=== PATIENT | female | born 1960 | race Caucasian/White ===

== ENCOUNTER 2022-02-08 12:17 | Outpatient (CLI) | payer BC, SELFPAY ==
--- NOTE | ~2022-02-08 | MR_ITS ---
EXAMINATION: MR lumbar spine wo con DATE: 02/08/2022 12:50 INDICATION: Lumbar spinal stenosis. Burning pain in the buttocks with extended sitting. TECHNIQUE: Magnetic resonance imaging (MRI) of the lumbar spine was performed without intravenous con trast. Sequences included sagittal T2-weighted FSE, sagittal T2-weighted FS FSE, sagittal T1-weighted FSE, and axial T2-weighted FSE. COMPARISON: None FINDINGS: 3 mm retrolisthesis L4 on L5 and 4 mm retrolisthesis L5 on S1. There is a few millimeters right later al listhesis of L3 with respect to both L2 and L4. Vertebral body heights are normal. Moderate to sev ere disc height loss with fibrofatty and fibrovascular degenerative endplate changes at L3-L4, L5-S1 and at the right side of L4-L5. Marrow signal is otherwise normal. Moderate disc height loss at L2-L3 . Mild disc height loss at T11-T12 through L1-L2. The conus medullaris terminates at L1-L2. There is normal signal in the caudal spinal cord. Paravertebral soft tissues are unremarkable. The following d isc levels are specifically discussed: T12-L1: Disc is minimally bulging. There is mild bilateral facet joint osteoarthritis. There is no ne ural foraminal stenosis. There is no central canal stenosis. L1-L2: Disc is mildly bulging with superimposed annular fissure and very small central disc extrusion with disc material extending a few millimeters cephalad to the level of the inferior endplate of L1. There is no facet joint osteoarthritis. There is no neural foraminal stenosis. There is mild central canal stenosis. L2-L3: Disc is bulging. There is mild right facet joint osteoarthritis. There is mild bilateral neura l foraminal stenosis. There is mild central canal stenosis. L3-L4: Disc is bulging with superimposed annular fissure and small left paracentral disc extrusion wi th disc bulge extending couple millimeters cephalad and caudal to the level of the endplates. There i s mild bilateral facet joint osteoarthritis. There is mild right and mild to moderate left neural for aminal stenosis. There is mild central canal stenosis. There is also mild narrowing of the left and r ight lateral recesses. L4-L5: Disc is bulging with superimposed annular fissure and broad-based disc extrusion extending fro m foraminal zone to foraminal zone with disc material extending up to 4 mm caudal to the level of the superior endplate of L5. There is mild bilateral facet joint osteoarthritis. There is moderate right and mild to moderate left neural foraminal stenosis. There is mild central canal stenosis. There is also mild narrowing of the left and right lateral recesses. L5-S1: Annular fissure and broad-based disc extrusion extending from foraminal zone to foraminal zone with disc material extending up to 5 mm caudal to the level of the superior endplate of S1. There is mild bilateral facet joint osteoarthritis. There is moderate bilateral neural foraminal stenosis. Th ere is mild central canal stenosis. IMPRESSION: 1. Moderate to severe lumbar spondylosis. Reviewed, dictated and finalized at location B.
== END 2022-02-08 12:18 ==
PROVIDERS: PCP Internal Medicine; Visit Provider Internal Medicine
DX: M47.817 Spondylosis without myelopathy or radiculopathy, lumbosacral region (principal); M48.07 Spinal stenosis, lumbosacral region
CPT/HCPCS: 72148

== ENCOUNTER 2025-03-12 11:36 | Emergency (ER) | payer MEDICARE, BC, SELFPAY ==
--- NOTE | ~2025-03-12 | CT_ITS ---
EXAMINATION: CTA chest PE protocol DATE: 03/12/2025 16:14 CDT INDICATION: Right flank pain. Pain with inspiration. TECHNIQUE: Computed tomographic angiography (CTA) of the chest was performed with 100 mL Omnipaque-35 0 intravenous contrast. The dose-length product was 151.12 mGy-cm. Maximum intensity projection 3D-re constructions of the aorta and other arteries were constructed by the technologist on a separate work station. COMPARISON: None. FINDINGS/OBSERVATIONS: PULMONARY ARTERIES: No filling defect is identified within the main or proximal pulmonary artery. The main pulmonary artery is not enlarged. THORACIC AORTA: No aneurysmal dilatation or dissection is present. The great vessels are intact LUNGS: Panlobular emphysematous disease is identified bilaterally. Trace bibasilar atelectasis. Centrilobular bronchiectasis is also noted. MEDIASTINUM: No morphologically suspicious or pathologically enlarged lymph nodes are identified with in the mediastinum or bilateral axilla. BONES OF THE CHEST: Large Schmorl's node within the inferior endplate at the level of T8, with narrowing of the intervert ebral disc space of T8/T9. No lytic or blastic lesions are identified. No acute fractures are noted. HEART: The heart is of normal size, without pericardial effusion. IMPRESSION: No pulmonary embolus. No thoracic aortic dissection. Degenerative disease within the thoracic spine, specifically at the level of inferior endplate of T8. Panlobular emphysema. Trace bibasilar atelectasis. Reviewed, dictated and finalized at location A. IMPRESSION: No pulmonary embolus. No thoracic aortic dissection. Degenerative disease within the thoracic spine, specifically at the level of in ferior endplate of T8. Panlobular emphysema. Trace bibasilar atelectasis.
--- NOTE | ~2025-03-12 | XR_ITS ---
XR chest 1V portable Ordering provider: Timoteo Wagner MD History: 64 years Female with . back pain . Comparison: None. FINDINGS: MEDIASTINUM: The cardiac silhouette is not enlarged. LUNGS: No infiltrates, effusions or pneumothorax. OTHER: No free air under the diaphragm. IMPRESSION: No acute cardiopulmonary pathology. Reviewed, dictated and finalized at location A.
[2025-03-12 11:40] VITALS: BP 111/80; PULSE 95; RESP 18; TEMP 36.5; O2SAT 99
--- OUTSIDE RECORDS SUMMARY | 2025-03-12 11:40 | XMS_ITS | Encounter Summary ---
Author Organization [facility] Health Address [address] [place] [address] Care Team Providers Care Burrito Maker Name Role Phone Antony England MD Primary Care Provider Delmar morris Encounter Details Date Type Department Care Team (Late st Contact Info) Description 11/12/2024 Lab Requisition [facility] - DermPath Lab [address] [place] [id number] Timo Cohen MD [address] [place], [place] [id number] Social History Tobacco Use Types Packs/Day Years Used Date Smoking Tobacco: Every Day Cigarettes Smokeless Tobacco: Never Comments:6 cigs a day Alcohol Use Standard Drinks/Week Comments Yes 0 (1 standard drink = 0.6 oz pur e alcohol) occas Comments Unknown Sex and Gender Information Value Date Recorded Sex Assigned at Not on file Legal Sex Female 2:18 PM PROJECT ANALYST Gender Identity Not on file Sexual Orientation Not on file documented as of this encounter Plan of Treatment Not on file documented as of this encounter Procedures Procedure Name Priority Date/Time Associated Diagnosis Comments DERMATOPATHOLOGY Routine 11/12/2024 3:33 AM PROJECT ANALYST documented in this encounter Results * DERMATOPATHOLOGY (11/12/2024 3:33 AM PROJECT ANALYST) Case Report Dermatopathology Report Case: [id number] Authorizing Provider: Timo Cohen MD Collected: 11/12/2024 03:33 AM Ordering Location: [facility] - Received: 11/12/2024 03:15 PM DermPath Lab Pathologist: Keyona Wilson MD Specimen: Skin, left sup forehead 12:11 PM [facility] DERMATOPATHOLOGY LABORATORY Final Diagnosis Specimen A. SKIN, left sup forehead: EPIDERMOID CYST (L72.0) 12:11 PM [facility] DERMATOPATHOLOGY LABORATORY at 1211 PROJECT ANALYST Clinical History Cyst 12:11 PM [facility] DERMATOPATHOLOGY LABORATORY Gross Description Specimen A: Received is one formalin filled container labeled with the patient's name and designated left sup forehead. The specimen consists of a 4x4x12 mm piece of skin. The specimen is serially sectioned and a communications representative section is submitted in cassette 1. Jar 0. 12:11 PM [facility] DERMATOPATHOLOGY LABORATORY Microscopic Description Specimen A. SKIN, left sup forehead: Within the dermis, there is a space lined by epithelium that resembles normal epidermis and the infundibular portion of the hair follicle. 12:11 PM [facility] DERMATOPATHOLOGY LABORATORY Disclaimer An external and internal positive and negative controls are appropriate for the histochemical, immunohistochemical and immunofluorescence stain(s) in this case (if any), except where stated explicitly. The performance characteristics of the stain(s) cited in this report were developed and its performance characteristic determined by the Dermatopathology Laboratory at [facility], directed by Dr. Flavia Wilson. These tests need not be, and therefore are not, approved by the [place] Food and Drug Administration. The tests are used for clinical purposes. Billing Codes Specimen Charges Stain Charges 20001 1 12:11 PM [facility] DERMATOPATHOLOGY LABORATORY Embedded Images 12:11 PM [facility] DERMATOPATHOLOGY LABORATORY Pathology/Cytolo gy TISSUE SPECIMEN FROM SKIN / Unknown 11/12/2024 3:33 AM PROJECT ANALYST 11/12/2024 3:15 PM [facility] us Timo Cohen MD LAB - PATHOLOGY/CYTOLOGY ORDERAB LES Final Result DERMATOPATHOLOGY LABORATORY [facility] - Department of Dermatology [address] [phone] documented in this encounter Visit Diagnoses Not on filedocumented in this encounter Care Teams Burrito Maker Relationship Specialty Start Date End Date Antony England MD PCP - General 08/17/12 documented as of this encounter
--- OUTSIDE RECORDS SUMMARY | 2025-03-12 11:40 | XMS_ITS | Clinical Summary ---
Author Organization [facility] Address [address] Attn: Epic Prelude ADT DEVENDRA SHAY [id number] Care Team Providers Care Machine Stacker Name Role Phone Unavailable Primary Care Provider Unavailabl e Allergies Active Allergy Reactions Criticality Noted Date Comments Codeine Nausea and Vomiting Low 03/30/2017 Medications cyclobenzaprine (FLEXERIL) 10 mg tabletIndication s:Midline low back pain without sciatica, unspecified chronicity Take 1 Tablet (10 mg) by mouth 3 times daily as needed for Spasm. 20 Tablet 0 03/30/2017 Active HYDROcodone-acet aminophen (NORCO) 5-325 mg tabletIndication s:Midline low back pain without sciatica, unspecified chronicity Take 1 Tablet by mouth every 6 hours as needed for Pain, Moderate. 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 Gender Identity Not on file Sexual Orientation Not on file Last Filed Vital Signs Vital Sign Reading Time Taken Comments Blood Pressure 110/70 03/30/2017 9:34 AM CDT Pulse 94 03/30/2017 9:34 AM CDT Temperature 36.6 C (97.8 F) 03/30/2017 9:34 AM CDT Respiratory Rate 20 03/30/2017 9:34 AM CDT Oxygen Saturation - - Inhaled Oxygen Concentration - - Weight 58.2 kg (128 lb 3.2 oz) 03/30/2017 9:34 A M CDT Height 167.6 cm (5' 6) 03/30/2017 9:34 AM CDT Body Mass Index 20.69 03/30/2017 9:34 AM CDT Plan of Treatment Health Maintenance Due Date Last Done Comments DTAP/TDAP/TD VACCINES (1 - Tdap) 1978 BREAST CANCER SCREENING 1999 COLORECTAL SCREENING 2004 Colorectal Cancer Screening 2004 FIT-DNA Q 3 years 2004 FIT/FOBT Q 1 year 2004 Flex Sig/CT Colonography Q 5 years 2004 PNEUMOCOCCAL VACCINE 50+ YEARS (1 of 1 - PCV) 06/27/20 09 ZOSTER VACCINE (1 of 2) 2009 INFLUENZA VACCINE (#1) 2024 OSTEOPOROSIS SCREENING 2024 RSV VACCINE (60+ or ) (1 - 1-dose 75+ series) 2034
--- OUTSIDE RECORDS SUMMARY | 2025-03-12 11:40 | XMS_ITS | Clinical Summary ---
Author Organization [facility] Address [address] [place] [address] Care Team Providers Care Hose Mender Name Role Phone Antony England MD Primary Care Provider Unaabhilash morris Source Comments [facility],non-owned Affiliates and Associated Physician Practices is amultiple site organization consisting of ambulatory clinics and hospital sitesin [place], [place], [place] and [place]. This disclosure is being madepursuant to the Care Everywhere program and may not contain all information available regarding this patient. Last updated 18.[facility] [email or web address]. Allergies No known active allergies Medications * Be aware that medications may not be up to date on this document. Alwaysverify current medications with the patient. 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 Gender Identity Not on file Sexual Orientation Not on file Last Filed Vital Signs Vital Sign Reading Time Taken Comments Blood Pressure 89/68 08/17/2012 10:09 AM CDT Pulse 79 08/17/2012 10:09 AM CDT Temperature - - Respiratory Rate 17 08/17/2012 9:27 AM CDT Oxygen Saturation 100% 08/17/2012 10:00 AM CDT Inhaled Oxygen Concentration - - Weight 54.9 kg (121 lb) 08/17/2012 9:02 AM CDT Height 170.2 cm (5' 7) 08/17/2012 9:02 AM CDT Body Mass Index 18.95 08/17/2012 9:02 AM CDT Plan of Treatment Health Maintenance Due Date Last Done Comments BONE DENSITY TESTING 1959 COLOGUARD (AGES 45-75) - COL ON CA SCREENING 1959 COLON MONITORING 1959 COLONOSCOPY - COLON CA SCREENING 1959 CT COLONOGRAPHY - COLON CA SCREENING 1959 Colorectal Cancer Screening 1959 FIT - COLON CA SCREENING 1959 FLEX SIG - COLON CA SCREENING 1959 LIPID TESTING 1959 MAMMOGRAM 1959 MEDICARE AWV 12 MONTHS 1959 PAP SMEAR 1959 HIV SCREENING 1974 HEPATITIS C SCREENING 06/22/1977 DTAP/TDAP/TD VACCINES (1 - Tdap) 1978 PNEUMOCOCCAL VACCINE 50+ (1 of 2 - PCV) 1978 ZOSTER VACCINE (1 of 2) 2009 COVID-19 VACCINE (1 - 2023-2 5 season) 2024 DEPRESSION SCREENING 10/16/2024 INFLUENZA VACCINE (Season Ended) 2025 Respiratory Syncytial Virus (RSV) Vaccine Pt: or over 60 yrs (1 - 1-dose 75+ series) 2034 HEPATITIS B VACCINE Aged Out No longe r eligible based on patient's age to complete this topic HIB VACCINE Aged Out No longer eligi ble based on patient's age to complete this topic HPV VACCINE Aged Out No longer eligi ble based on patient's age to complete this topic MENINGOCOCCAL (Group B) VACC INE SHARED DECISION-MAKING Aged Out No longer eligibl e based on patient's age to complete this topic MENINGOCOCCAL GROUPS A/C/Y/W VACCINE Aged Out No longer eligible b ased on patient's age to complete this topic Insurance ANTH MEDICARE [facility] Care Teams Hose Mender Relationship Specialty Start Date End Date Antony England MD PCP - General 08/17/12
--- OUTSIDE RECORDS SUMMARY | 2025-03-12 11:40 | XMS_ITS | CONTINUITY OF CARE DOCUMENT ---
Author Name prosper cheng Address Unknown Organization [facility] Address [address] [place] [address] Phone [phone] Care Team Providers Care Manager Balance Name Role Phone Hayden Weiner MD Unavailable Hayden Weiner MD Unavailable [phone] INSURANCE PROVIDERS Payer name Policy type / Coverage type Forrest red republican ID [facility] Blue [facility] [id number] [place] Medicare [id number]
--- NOTE | 2025-03-12 12:12 | ECG_ITS ---
Test Date: 2025-03-12 14:10:23 Measurements Intervals [place] Rate: 91 P: 83 NC: 147 QRS: 71 QRSD: 80 T: 64 QT: 338 QTc: 416 Interpretive Statements SINUS RHYTHM LEFT ATRIAL ENLARGEMENT [-0.15mV P WAVE IN V1/V2] NONSPECIFIC T-WAVE ABNORMALITY No previous ECG available for comparison Electronically Signed On 03-13-2025 15:10:54 CDT by Umair Saab M.D.
--- NOTE | 2025-03-12 13:30 | ED_ITS ---
HPI - General Adult General Chief complaint: Unspecified <Martha Villatoro PA-C - Last Filed: 03/12/25 17:53> Stated complaint: R flank pain/SHOB-[place] 12/19-stent placed <Martha Villatoro PA-C - Last Filed: 03/12/25 17:53> Time Seen by Provider: 03/12/25 13:30 <Martha Villatoro PA-C - Last Filed: 03/12/25 17:53> Focused HPI: This is a 64 year old female that presents to the ER for right flank pain. Worse with deep breathing, movement. Ongoing over the last couple of days. No recent injuries. Reports recent stent placement in December of this year in [place]. Reports some vomiting. Denies fever, dysuria, hematuria. GENERAL: Well-appearing, well-nourished, and in no acute distress. HEAD: Normocephalic, atraumatic. CHEST: Clear to auscultation. ?No respiratory distress. HEART: Regular rate and rhythm.? NEURO: ?Alert and oriented x3. Patient screened in triage and initial orders placed.? ?Additional care and disposition to be based upon?diagnostic testing and treatment. <Martha Villatoro PA-C - Last Filed: 03/12/25 17:53> History of Present Illness HPI narrative: Patient is 64-year-old female who presents emergency department chief complaint of right sided flank pain. Patient reports that she prior history cardiac disease is had 2 stents placed patient is on Plavix patient reports that pain is a pressure-like sensation reports that she has had a cough has been productive of some sputum denies fever denies abdominal pain patient denies chest pain. <Timoteo Wagner MD - Last Filed: 03/12/25 17:49> Related Data Home medications: Home Medications ?Medication ?Instructions ?Recorded ?Confirmed ?Last Taken ?Type aspirin 81 mg tablet,delayed 81 mg PO DAILY 01/29/25 01/29/25 Unknown History release (Adult Low Dose Aspirin) clopidogrel 75 mg tablet (Plavix) 75 mg PO DAILY 01/29/25 01/29/25 Unknown History <Martha Villatoro PA-C - Last Filed: 03/12/25 17:53> Allergies/adverse reactions: Allergies Allergy/AdvReac Type Severity Reaction Status Date / Time codeine AdvReac Mild Nausea and Verified 03/12/25 11:39 Vomiting <Martha Villatoro PA-C - Last Filed: 03/12/25 17:53> Review of Systems 2 Review of Systems: A 10 system review of systems was completed on the patient and is negative except for what is stated in the HPI. Nursing and ancillary documentation was reviewed. <Timoteo Wagner MD - Last Filed: 03/12/25 17:49> FOR[facility]LY [facility] Past Medical History Medical History: Medical History Broken wrist 2002 Heart attack 2018 Acute sinusitis Heart disease Arthritis Anemia Patient denies medical problems <Martha Villatoro PA-C - Last Filed: 03/12/25 17:53> Surgical History Surgical History: Surgical History H/O: hysterectomy 2014 H/O heart artery stent <Martha Villatoro PA-C - Last Filed: 03/12/25 17:53> Family History Family History: Family History Mother Asthma Hypertension Heart disease Thyroid disorder Sibling Cancer <Martha Villatoro PA-C - Last Filed: 03/12/25 17:53> Social History Social History: Social History Smoking packs per day: 1 Smoking cigarettes per day: 20.0 Smoking status: Current some day smoker Alcohol intake: current Substance use: never Substance use type: marijuana Do You Feel Safe in your Home?: Yes Lack of Transportation: No Lack of Food: Never True Current Housing: I Have Housing Concerned About Future Housing: No Difficulty Paying Gas/Electric Bills: No Difficulty Paying for Meds: No Currently Unemployed: No Education: High School Diploma/GED Difficulty w/ Childcare or Family Care: Decline to Answer Living arrangements: alone Occupation/Education: occupation <Martha Villatoro PA-C - Last Filed: 03/12/25 17:53> Exam 2 Narrative: GENERAL: Well-appearing, well-nourished, and in no acute distress. HEAD: Normocephalic, atraumatic. EYES: PERRLA and EOMI. ENT: Nares clear, no rhinorrhea or epistaxis. Mucous membranes moist. NECK: Supple. CHEST: Clear to auscultation. No respiratory distress. HEART: Regular rate and rhythm. No murmur heard. Normal peripheral pulses. ABDOMEN: Soft, nontender, nondistended, normal active bowel sounds. EXTREMITIES: Normal range of motion. No edema. SKIN: Warm, dry, no rash. NEURO: No focal deficits. Alert and oriented x3. PSYCH: Normal mood and affect. <Timoteo Wagner MD - Last Filed: 03/12/25 17:49> Course Vital Signs Vital signs: Vital Signs Temperature 97.7 F 03/12/25 11:40 Pulse Rate 95 03/12/25 11:40 Respiratory Rate 18 03/12/25 11:40 Blood Pressure 111/80 03/12/25 11:40 Pulse Oximetry 99 03/12/25 11:40 Oxygen Delivery Room Air 03/12/25 11:40 Temperature 97.7 F 03/12/25 11:40 Pulse Rate 83 03/12/25 15:01 Respiratory Rate 20 03/12/25 15:01 Blood Pressure 105/78 03/12/25 15:01 Pulse Oximetry 99 03/12/25 15:01 Oxygen Delivery Room Air 03/12/25 11:40 <Martha Villatoro PA-C - Last Filed: 03/12/25 17:53> Vital Signs Temperature 97.7 F 03/12/25 11:40 Pulse Rate 95 03/12/25 11:40 Respiratory Rate 18 03/12/25 11:40 Blood Pressure 111/80 03/12/25 11:40 Pulse Oximetry 99 03/12/25 11:40 Oxygen Delivery Room Air 03/12/25 11:40 Temperature 97.7 F 03/12/25 11:40 Pulse Rate 83 03/12/25 15:01 Respiratory Rate 20 03/12/25 15:01 Blood Pressure 105/78 03/12/25 15:01 Pulse Oximetry 99 03/12/25 15:01 Oxygen Delivery Room Air 03/12/25 11:40 <Timoteo Wagner MD - Last Filed: 03/12/25 17:49> Medical Decision Making MDM Narrative Medical decision making narrative: Differential diagnosis includes atypical chest pain, back pain, flank pain, pulmonary embolism Chest x-ray showed no focal infiltrate COVID flu RSV were negative initial troponin was negative Delta troponin was negative EKG showed no acute ischemic changes CTA chest showed no evidence of PE Patient is feeling much better at this time Patient will be discharged home to follow-up with a primary care provider < Timoteo Wagner MD - Last Filed: 03/12/25 17:49> Vital Signs Vital Signs: Vital Signs Temperature 97.7 F 03/12/25 11:40 Pulse Rate 95 03/12/25 11:40 Respiratory Rate 18 03/12/25 11:40 Blood Pressure 111/80 03/12/25 11:40 Pulse Oximetry 99 03/12/25 11:40 Oxygen Delivery Room Air 03/12/25 11:40 Temperature 97.7 F 03/12/25 11:40 Pulse Rate 83 03/12/25 15:01 Respiratory Rate 20 03/12/25 15:01 Blood Pressure 105/78 03/12/25 15:01 Pulse Oximetry 99 03/12/25 15:01 Oxygen Delivery Room Air 03/12/25 11:40 <Martha Villatoro PA-C - Last Filed: 03/12/25 17:53> Vital Signs Temperature 97.7 F 03/12/25 11:40 Pulse Rate 95 03/12/25 11:40 Respiratory Rate 18 03/12/25 11:40 Blood Pressure 111/80 03/12/25 11:40 Pulse Oximetry 99 03/12/25 11:40 Oxygen Delivery Room Air 03/12/25 11:40 Temperature 97.7 F 03/12/25 11:40 Pulse Rate 83 03/12/25 15:01 Respiratory Rate 20 03/12/25 15:01 Blood Pressure 105/78 03/12/25 15:01 Pulse Oximetry 99 03/12/25 15:01 Oxygen Delivery Room Air 03/12/25 11:40 <Timoteo Wagner MD - Last Filed: 03/12/25 17:49> Lab Data Result diagrams: 03/12/25 14:17 03/12/25 14:17 <GAMAL Nguyen Last Filed: 03/12/25 17:53> Labs: Lab Results 03/12/25 03/12/25 03/12/25 Range/Units 14:17 14:18 14:54 WBC 11.7 H (4.5-10.0) K/mm3 RBC 5.17 (4.2-5.4) M/mm3 Hgb 13.4 (12.0-15.0) g/dL Hct 43.7 (37.0-47.0) % MCV 84.5 (80-100) fl MCH 25.9 L (26-34) pg MCHC 30.7 L (32-36) g/dl RDW 15.7 H (11.5-14.5) % Plt Count 456 H (150-375) k/mm3 MPV 10.3 (7.4-10.4) fl Immature Gran % (Auto) 0.3 (0-0.5) % Neut % (Auto) 64.3 (45.5-73.1) % Lymph % (Auto) 26.3 (18.3-44.2) % Aiken % (Auto) 7.9 (2.6-8.5) % Eos % (Auto) 0.7 (0-4.4) % Baso % (Auto) 0.5 (0.2-1.2) % Lymph # (Auto) 3.08 (0.9-3.2) K/mm3 Aiken # (Auto) 0.9 H (0.1-0.6) K/mm3 Eos # (Auto) 0.1 (0-0.3) K/mm3 Baso # (Auto) 0.1 (0.0-0.1) K/mm3 Abs Immat Gran (auto) 0.04 H (0.00-0.031) K/mm3 Absolute Neuts (auto) 7.5 H (1.3-6.7) K/mm3 Absolute Nucleated RBC 0.000 (0.0-0.012) K/mm3 Nucleated RBC % 0.0 (0.0-0.2) % PT 13.2 (11.1-14.7) Seconds INR 1.0 APTT 27.4 (22.3-36.8) Seconds Sodium 141 (137-145) mmol/L Potassium 4.2 (3.4-5.0) mmol/L Chloride 102 (98-107) mmol/L Carbon Dioxide 28 (22-30) mmol/L Anion Gap 11 (4-12) mmol/L BUN 11 (7-17) mg/dL Creatinine 0.68 L (0.7-1.0) mg/dL Estim Creat Clear Calc 54 ml/min Estimated GFR > 60 (59 - ) Glucose 118 H (65-110) mg/dL Lactic Acid (0.7-2.0) mmol/L Calcium 9.9 (8.4-10.2) mg/dL Total Bilirubin 0.4 (0.2-1.3) mg/dL AST 49 H (14-36) U/L ALT 23 (6-35) U/L Alkaline Phosphatase 164 H (38-126) U/L Troponin I < 0.012 (0.000-0.034) ng/mL NT-Pro-B Natriuret Pep 260 H (19.9-100) pg/mL Total Protein 9.0 H (6.3-8.2) g/dL Albumin 4.8 (3.5-5.1) g/dL Lipase 130 (23-300) U/L Urine Color Yellow (Yellow) Urine Appearance Clear (Clear) Urine pH 6.0 (5.0-9.0) Ur Specific Wellman 1.016 (1.001-1.035) Urine Protein Negative (Negative) mg/dL Urine Glucose (UA) Negative (Negative) mg/dL Urine Ketones Negative (Negative) mg/dL Ur Blood (Man) Negative (Negative) Urine Nitrate Negative (Negative) Urine Bilirubin Negative (Negative) Urine Urobilinogen 0.2 (<2.0) mg/dL Add Ur Microanalysis Reviewed Leukocyte Esterase Rfl 1+ H (Negative) PARTHA/UL Urine RBC 0-2 (0-2) /hpf Urine WBC 0-5 (0-3) /hpf Ur Squamous Epith Cells Few (Few) /hpf Urine Bacteria None seen /hpf Urine Casts 3-5 Influenza A (RT-PCR) Negative (Negative) Influenza B (RT-PCR) Negative (Negative) RSV (RT-PCR) Negative (Negative) SARS-CoV-2 RNA (RT-PCR) Negative (Negative) 03/12/25 03/12/25 Range/Units 15:26 16:58 WBC (4.5-10.0) K/mm3 RBC (4.2-5.4) M/mm3 Hgb (12.0-15.0) g/dL Hct (37.0-47.0) % MCV (80-100) fl MCH (26-34) pg MCHC (32-36) g/dl RDW (11.5-14.5) % Plt Count (150-375) k/mm3 MPV (7.4-10.4) fl Immature Gran % (Auto) (0-0.5) % Neut % (Auto) (45.5-73.1) % Lymph % (Auto) (18.3-44.2) % Aiken % (Auto) (2.6-8.5) % Eos % (Auto) (0-4.4) % Baso % (Auto) (0.2-1.2) % Lymph # (Auto) (0.9-3.2) K/mm3 Aiken # (Auto) (0.1-0.6) K/mm3 Eos # (Auto) (0-0.3) K/mm3 Baso # (Auto) (0.0-0.1) K/mm3 Abs Immat Gran (auto) (0.00-0.031) K/mm3 Absolute Neuts (auto) (1.3-6.7) K/mm3 Absolute Nucleated RBC (0.0-0.012) K/mm3 Nucleated RBC % (0.0-0.2) % PT (11.1-14.7) Seconds INR APTT (22.3-36.8) Seconds Sodium (137-145) mmol/L Potassium (3.4-5.0) mmol/L Chloride (98-107) mmol/L Carbon Dioxide (22-30) mmol/L Anion Gap (4-12) mmol/L BUN (7-17) mg/dL Creatinine (0.7-1.0) mg/dL Estim Creat Clear Calc ml/min Estimated GFR (59 - ) Glucose (65-110) mg/dL Lactic Acid 1.1 (0.7-2.0) mmol/L Calcium (8.4-10.2) mg/dL Total Bilirubin (0.2-1.3) mg/dL AST (14-36) U/L ALT (6-35) U/L Alkaline Phosphatase (38-126) U/L Troponin I < 0.012 (0.000-0.034) ng/mL NT-Pro-B Natriuret Pep (19.9-100) pg/mL Total Protein (6.3-8.2) g/dL Albumin (3.5-5.1) g/dL Lipase (23-300) U/L Urine Color (Yellow) Urine Appearance (Clear) Urine pH (5.0-9.0) Ur Specific Wellman (1.001-1.035) Urine Protein (Negative) mg/dL Urine Glucose (UA) (Negative) mg/dL Urine Ketones (Negative) mg/dL Ur Blood (Man) (Negative) Urine Nitrate (Negative) Urine Bilirubin (Negative) Urine Urobilinogen (<2.0) mg/dL Add Ur Microanalysis Leukocyte Esterase Rfl (Negative) PARTHA/UL Urine RBC (0-2) /hpf Urine WBC (0-3) /hpf Ur Squamous Epith Cells (Few) /hpf Urine Bacteria /hpf Urine Casts Influenza A (RT-PCR) (Negative) Influenza B (RT-PCR) (Negative) RSV (RT-PCR) (Negative) SARS-CoV-2 RNA (RT-PCR) (Negative) <Martha Villatoro PA-C - Last Filed: 03/12/25 17:53> Lab Results 03/12/25 03/12/25 03/12/25 Range/Units 14:17 14:18 14:54 WBC 11.7 H (4.5-10.0) K/mm3 RBC 5.17 (4.2-5.4) M/mm3 Hgb 13.4 (12.0-15.0) g/dL Hct 43.7 (37.0-47.0) % MCV 84.5 (80-100) fl MCH 25.9 L (26-34) pg MCHC 30.7 L (32-36) g/dl RDW 15.7 H (11.5-14.5) % Plt Count 456 H (150-375) k/mm3 MPV 10.3 (7.4-10.4) fl Immature Gran % (Auto) 0.3 (0-0.5) % Neut % (Auto) 64.3 (45.5-73.1) % Lymph % (Auto) 26.3 (18.3-44.2) % Aiken % (Auto) 7.9 (2.6-8.5) % Eos % (Auto) 0.7 (0-4.4) % Baso % (Auto) 0.5 (0.2-1.2) % Lymph # (Auto) 3.08 (0.9-3.2) K/mm3 Aiken # (Auto) 0.9 H (0.1-0.6) K/mm3 Eos # (Auto) 0.1 (0-0.3) K/mm3 Baso # (Auto) 0.1 (0.0-0.1) K/mm3 Abs Immat Gran (auto) 0.04 H (0.00-0.031) K/mm3 Absolute Neuts (auto) 7.5 H (1.3-6.7) K/mm3 Absolute Nucleated RBC 0.000 (0.0-0.012) K/mm3 Nucleated RBC % 0.0 (0.0-0.2) % PT 13.2 (11.1-14.7) Seconds INR 1.0 APTT 27.4 (22.3-36.8) Seconds Sodium 141 (137-145) mmol/L Potassium 4.2 (3.4-5.0) mmol/L Chloride 102 (98-107) mmol/L Carbon Dioxide 28 (22-30) mmol/L Anion Gap 11 (4-12) mmol/L BUN 11 (7-17) mg/dL Creatinine 0.68 L (0.7-1.0) mg/dL Estim Creat Clear Calc 54 ml/min Estimated GFR > 60 (59 - ) Glucose 118 H (65-110) mg/dL Lactic Acid (0.7-2.0) mmol/L Calcium 9.9 (8.4-10.2) mg/dL Total Bilirubin 0.4 (0.2-1.3) mg/dL AST 49 H (14-36) U/L ALT 23 (6-35) U/L Alkaline Phosphatase 164 H (38-126) U/L Troponin I < 0.012 (0.000-0.034) ng/mL NT-Pro-B Natriuret Pep 260 H (19.9-100) pg/mL Total Protein 9.0 H (6.3-8.2) g/dL Albumin 4.8 (3.5-5.1) g/dL Lipase 130 (23-300) U/L Urine Color Yellow (Yellow) Urine Appearance Clear (Clear) Urine pH 6.0 (5.0-9.0) Ur Specific Wellman 1.016 (1.001-1.035) Urine Protein Negative (Negative) mg/dL Urine Glucose (UA) Negative (Negative) mg/dL Urine Ketones Negative (Negative) mg/dL Ur Blood (Man) Negative (Negative) Urine Nitrate Negative (Negative) Urine Bilirubin Negative (Negative) Urine Urobilinogen 0.2 (<2.0) mg/dL Add Ur Microanalysis Reviewed Leukocyte Esterase Rfl 1+ H (Negative) PARTHA/UL Urine RBC 0-2 (0-2) /hpf Urine WBC 0-5 (0-3) /hpf Ur Squamous Epith Cells Few (Few) /hpf Urine Bacteria None seen /hpf Urine Casts 3-5 Influenza A (RT-PCR) Negative (Negative) Influenza B (RT-PCR) Negative (Negative) RSV (RT-PCR) Negative (Negative) SARS-CoV-2 RNA (RT-PCR) Negative (Negative) 03/12/25 03/12/25 Range/Units 15:26 16:58 WBC (4.5-10.0) K/mm3 RBC (4.2-5.4) M/mm3 Hgb (12.0-15.0) g/dL Hct (37.0-47.0) % MCV (80-100) fl MCH (26-34) pg MCHC (32-36) g/dl RDW (11.5-14.5) % Plt Count (150-375) k/mm3 MPV (7.4-10.4) fl Immature Gran % (Auto) (0-0.5) % Neut % (Auto) (45.5-73.1) % Lymph % (Auto) (18.3-44.2) % Aiken % (Auto) (2.6-8.5) % Eos % (Auto) (0-4.4) % Baso % (Auto) (0.2-1.2) % Lymph # (Auto) (0.9-3.2) K/mm3 Aiken # (Auto) (0.1-0.6) K/mm3 Eos # (Auto) (0-0.3) K/mm3 Baso # (Auto) (0.0-0.1) K/mm3 Abs Immat Gran (auto) (0.00-0.031) K/mm3 Absolute Neuts (auto) (1.3-6.7) K/mm3 Absolute Nucleated RBC (0.0-0.012) K/mm3 Nucleated RBC % (0.0-0.2) % PT (11.1-14.7) Seconds INR APTT (22.3-36.8) Seconds Sodium (137-145) mmol/L Potassium (3.4-5.0) mmol/L Chloride (98-107) mmol/L Carbon Dioxide (22-30) mmol/L Anion Gap (4-12) mmol/L BUN (7-17) mg/dL Creatinine (0.7-1.0) mg/dL Estim Creat Clear Calc ml/min Estimated GFR (59 - ) Glucose (65-110) mg/dL Lactic Acid 1.1 (0.7-2.0) mmol/L Calcium (8.4-10.2) mg/dL Total Bilirubin (0.2-1.3) mg/dL AST (14-36) U/L ALT (6-35) U/L Alkaline Phosphatase (38-126) U/L Troponin I < 0.012 (0.000-0.034) ng/mL NT-Pro-B Natriuret Pep (19.9-100) pg/mL Total Protein (6.3-8.2) g/dL Albumin (3.5-5.1) g/dL Lipase (23-300) U/L Urine Color (Yellow) Urine Appearance (Clear) Urine pH (5.0-9.0) Ur Specific Wellman (1.001-1.035) Urine Protein (Negative) mg/dL Urine Glucose (UA) (Negative) mg/dL Urine Ketones (Negative) mg/dL Ur Blood (Man) (Negative) Urine Nitrate (Negative) Urine Bilirubin (Negative) Urine Urobilinogen (<2.0) mg/dL Add Ur Microanalysis Leukocyte Esterase Rfl (Negative) PARTHA/UL Urine RBC (0-2) /hpf Urine WBC (0-3) /hpf Ur Squamous Epith Cells (Few) /hpf Urine Bacteria /hpf Urine Casts Influenza A (RT-PCR) (Negative) Influenza B (RT-PCR) (Negative) RSV (RT-PCR) (Negative) SARS-CoV-2 RNA (RT-PCR) (Negative) <Timoteo Wagner MD - Last Filed: 03/12/25 17:49> Imaging Data Radiologist's impression: ITS Impressions Chest X-Ray 03/12/25 15:07 IMPRESSION: No acute cardiopulmonary pathology. Chest CTA 03/12/25 16:14 IMPRESSION: No pulmonary embolus. No thoracic aortic dissection. Degenerative disease within the thoracic spine, specifically at the level of inferior endplate of T8. Panlobular emphysema. Trace bibasilar atelectasis. <Martha Villatoro PA-C - Last Filed: 03/12/25 17:53> Discharge Plan Discharge Clinical Impression: Atypical chest pain Back pain, thoracic Qualifiers: Chronicity: acute Back pain laterality: right Qualified Code(s): M54.6 - Pain in thoracic spine <Martha Villatoro PA-C - Last Filed: 03/12/25 17:53> Patient Disposition: Home <Martha Villatoro PA-C - Last Filed: 03/12/25 17:53> Condition: Stable <Martha Villatoro PA-C - Last Filed: 03/12/25 17:53> Instructions: Antibiotic Form, Chest Pain (ED), Back Pain (ED) <Martha Villatoro PA-C - Last Filed: 03/12/25 17:53> Patient Language: Kiswahili <Martha Villatoro PA-C - Last Filed: 03/12/25 17:53> Prescriptions: No Action aspirin [Adult Low Dose Aspirin] 81 mg tablet,delayed release (DR/EC) 81 mg PO DAILY clopidogrel [Plavix] 75 mg tablet 75 mg PO DAILY nicotine 14 mg/24 hr patch 24 hour 1 patch transdermal DAILY Qty: 28 0RF bupropion HCl 150 mg tablet extended release 24 hr See Rx Instructions .ROUTE .COMPLEX Qty: 180 2RF Dose Instruction: TAKE 1 TABLET BY MOUTH TWICE A DAY Rx Instructions: TAKE 1 TABLET BY MOUTH TWICE A DAY cholecalciferol (vitamin D3) 50 mcg (2,000 unit) capsule 100 mcg PO DAILY Qty: 180 2RF ibuprofen 800 mg tablet See Rx Instructions .ROUTE .COMPLEX Qty: 90 2RF Dose Instruction: TAKE 1 TABLET BY MOUTH EVERY DAY Rx Instructions: TAKE 1 TABLET BY MOUTH EVERY DAY pantoprazole 40 mg tablet,delayed release (DR/EC) See Rx Instructions .ROUTE .COMPLEX Qty: 90 2RF Dose Instruction: TAKE 1 TABLET BY MOUTH EVERY DAY Rx Instructions: TAKE 1 TABLET BY MOUTH EVERY DAY fexofenadine 180 mg tablet See Rx Instructions .ROUTE .COMPLEX Qty: 90 2RF Dose Instruction: TAKE 1 TABLET BY MOUTH EVERY DAY NEEDED FOR ALLERGY SYMPTOMS Rx Instructions: TAKE 1 TABLET BY MOUTH EVERY DAY NEEDED FOR ALLERGY SYMPTOMS lorazepam 1 mg tablet 1 mg PO BID PRN (Reason: anxiety) Qty: 30 0RF ondansetron 4 mg tablet,disintegrating 4 mg PO Q6H PRN (Reason: nausea and vomiting) Qty: 20 0RF azithromycin [Zithromax Z-Ehsan] 250 mg tablet See Rx Instructions PO .COMPLEX Qty: 6 0RF Rx Instructions: For 250 mg dose pack: take 500 mg today (day 1), then 250 mg for 4 days (days 2-5) PO fluticasone propionate [Flonase Allergy Relief] 50 mcg/actuation spray,suspension 1 spray intranasal BID Qty: 48 0RF Rx Instructions: administer into each nostril mecobalamin (vitamin B12) 1,000 mcg tablet,disintegrating 1,000 mcg sublingual DAILY Qty: 90 2RF Rx Instructions: place tablet under tongue and allow to dissolve for at least30 secs before swallowing dextroamphetamine-amphetamine [Adderall XR] 20 mg capsule,extended release 24hr 20 mg PO DAILY Qty: 30 0RF <Martha Villatoro PA-C - Last Filed: 03/12/25 17:53> Follow-up/Referrals: Varinder Gutierrez MD [Primary Care Provider] - <Martha Villatoro PA-C - Last Filed: 03/12/25 17:53> Time of Disposition: 17:47 <Martha Villatoro PA-C - Last Filed: 03/12/25 17:53> 17:47 <Timoteo Wagner MD - Last Filed: 03/12/25 17:49>
--- OUTSIDE RECORDS SUMMARY | 2025-03-12 13:45 | XMS_ITS | Clinical Summary ---
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
--- OUTSIDE RECORDS SUMMARY | 2025-03-12 13:45 | XMS_ITS | CONTINUITY OF CARE DOCUMENT ---
Author Name prosper cheng Address Unknown Organization [facility] Address [address] [facility] [address] [place] [address] Phone [phone] Care Team Providers Care Handbag Designer Name Role Phone Hayden Weiner MD Unavailable Hayden Weiner MD Unavailable [phone] INSURANCE PROVIDERS Payer name Policy type / Coverage type Forrest red libertarian ID [facility] [id number] [place] [employer] Medicare [id number]
--- OUTSIDE RECORDS SUMMARY | 2025-03-12 13:45 | XMS_ITS | Clinical Summary ---
Author Organization [facility] Address [address] [place] [address] Care Team Providers Care Technical Support 1 Software Engineer Name Role Phone Antony England MD Primary Care Provider Unaabhilash morris Source Comments [facility],non-owned Affiliates and Associated Physician Practices is amultiple site organization consisting of ambulatory clinics and hospital sitesin [place], [place], [place] and [place]. This disclosure is being madepursuant to the Care Everywhere program and may not contain all information available regarding this patient. 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
--- OUTSIDE RECORDS SUMMARY | 2025-03-12 13:45 | XMS_ITS | Encounter Summary ---
Author Organization [facility] Health Address [address] [place] [place] [address] Care Team Providers Care Oversize Load Pilot Escort Name Role Phone Antony England MD Primary Care Provider Delmar morris Encounter Details Date Type Department Care Team (Late st Contact Info) Description 11/12/2024 Lab Requisition [facility] - DermPath Lab [address] [place] [phone] Timo Cohen MD [address] [place], [place] [id number] Social History Tobacco Use Types Packs/Day Years Used Date Smoking Tobacco: Every Day Cigarettes Smokeless Tobacco: Never Comments:6 cigs a day Alcohol Use Standard Drinks/Week Comments Yes 0 (1 standard drink = 0.6 oz pur e alcohol) occas Comments Unknown Sex and Gender Information Value Date Recorded Sex Assigned at Not on file Legal Sex Female 2:18 PM [employer] Gender Identity Not on file Sexual Orientation Not on file documented as of this encounter Plan of Treatment Not on file documented as of this encounter Procedures Procedure Name Priority Date/Time Associated Diagnosis Comments DERMATOPATHOLOGY Routine 11/12/2024 3:33 AM [employer] documented in this encounter Results * DERMATOPATHOLOGY (11/12/2024 3:33 AM [employer]) Case Report Dermatopathology Report Case: [id number] Authorizing Provider: Timo Cohen MD Collected: 11/12/2024 03:33 AM Ordering Location: [facility] - Received: 11/12/2024 03:15 PM DermPath Lab Pathologist: Keyona Wilson MD Specimen: Skin, left sup forehead 12:11 PM [facility] DERMAT[facility]Y [facility] Final Diagnosis Specimen A. SKIN, left sup forehead: EPIDERMOID CYST (L72.0) 12:11 PM [facility] DERMATOPATHOLOGY [facility]ORAT[facility] at [address] [employer] Clinical History Cyst 12:11 PM [facility]MAT[facility]ATH[facility] Gross Description Specimen A: Received is one formalin filled container labeled with the patient's name and designated left sup forehead. The specimen consists of a 4x4x12 mm piece of skin. The specimen is serially sectioned and a front desk representative section is submitted in cassette 1. Jar 0. 12:11 PM [facility] DERMATOPATHOLOGY [facility] Microscopic Description Specimen A. SKIN, left sup forehead: Within the dermis, there is a space lined by epithelium that resembles normal epidermis and the infundibular portion of the hair follicle. 12:11 PM [facility] DERMATOPATHOLOGY [facility] Disclaimer An external and internal positive and negative controls are appropriate for the histochemical, immunohistochemical and immunofluorescence stain(s) in this case (if any), except where stated explicitly. The performance characteristics of the stain(s) cited in this report were developed and its performance characteristic determined by the Dermatopathology Laboratory at [facility], directed by Dr. Flavia Wilson. These tests need not be, and therefore are not, approved by the [place] Food and Drug Administration. The tests are used for clinical purposes. Billing Codes Specimen Charges Stain Charges 58985 1 12:11 PM [facility] DERMATOPATHOLOGY [facility] Embedded Images 12:11 PM [facility] DERMATOPATHOLOGY [facility] Pathology/Cytolo gy TISSUE SPECIMEN FROM SKIN / Unknown 11/12/2024 3:33 AM [employer] 11/12/2024 3:15 PM [facility] us Timo Cohen MD LAB - PATHOLOGY/CYTOLOGY ORDERAB LES Final Result DERMATOPATHOLOGY LABORATORY [facility] - Department of Dermatology [address] [phone] documented in this encounter Visit Diagnoses Not on filedocumented in this encounter Care Teams Oversize Load Pilot Escort Relationship Specialty Start Date End Date Antony England MD PCP - General 08/17/12 documented as of this encounter
[2025-03-12 14:31] VITALS: BP 121/78; PULSE 94; RESP 20; O2SAT 100
[2025-03-12 14:46] VITALS: BP 115/79; PULSE 78; RESP 20; O2SAT 100
[2025-03-12 14:50] LABS: Basophils Absolute Auto 0.1 K/mm3 (0.0-0.1); Basophils Percent Auto 0.5 % (0.2-1.2); Eosinophils Absolute Auto 0.1 K/mm3 (0-0.3); Eosinophils Percent Auto 0.7 % (0-4.4); Hematocrit 43.7 % (37.0-47.0); Hemoglobin 13.4 g/dL (12.0-15.0); Immature Granulocyte Absolute 0.04 K/mm3 (0.00-0.031); Immature Granulocyte Percent A 0.3 % (0-0.5); Lymphocytes Absolute Auto 3.08 K/mm3 (0.9-3.2); Lymphocytes Percent Auto 26.3 % (18.3-44.2); Mean Corpuscular HGB Conc 30.7 g/dl (32-36); Mean Corpuscular Hemoglobin 25.9 pg (26-34); Mean Corpuscular Volume 84.5 fl (80-100); Mean Platelet Volume 10.3 fl (7.4-10.4); Monocytes Absolute Auto 0.9 K/mm3 (0.1-0.6); Monocytes Percent Auto 7.9 % (2.6-8.5); Neutrophils Absolute Auto 7.5 K/mm3 (1.3-6.7); Neutrophils Percent Auto 64.3 % (45.5-73.1); Platelet Count Result 456 k/mm3 (150-375); Red Blood Count 5.17 M/mm3 (4.2-5.4); Red Cell Distribution Width 15.7 % (11.5-14.5); White Blood Count 11.7 K/mm3 (4.5-10.0)
[2025-03-12 14:52] LABS: Alanine Aminotransferase 23 U/L (6-35); Albumin Level 4.8 g/dL (3.5-5.1); Alkaline Phosphatase 164 U/L (38-126); Anion Gap 11 mmol/L (4-12); Aspartate Amino Transferase 49 U/L (14-36); Bilirubin,Total 0.4 mg/dL (0.2-1.3); Blood Urea Nitrogen 11 mg/dL (7-17); Calcium 9.9 mg/dL (8.4-10.2); Carbon Dioxide 28 mmol/L (22-30); Chloride 102 mmol/L (98-107); Estimated CRCL calculation 54 ml/min; Estimated Glomerular Filt Rate > 60; Glucose 118 mg/dL (65-110); Lipase 130 U/L (23-300); Potassium 4.2 mmol/L (3.4-5.0); Sodium 141 mmol/L (137-145)
[2025-03-12 15:01] VITALS: BP 105/78; PULSE 83; RESP 20; O2SAT 99
[2025-03-12 15:02] LABS: Partial Thromboplastin Time 27.4 Seconds (22.3-36.8); Prothrombin Time 13.2 Seconds (11.1-14.7)
[2025-03-12 15:07] LABS: Add Urine Microscopic? YES; Appearance Urine Clear (Clear); Bacteria Urine None Seen /hpf; Bilirubin Urine Negative (Negative); Blood Urine Negative (Negative); Color Urine Yellow (Yellow); Glucose Urine UA Negative (Negative); Ketones Urine Negative (Negative); Leukocyte Esterase Ur 1+ LEU/UL (Negative); Need Manual Microscopic Reviewed; Nitrate Urine Negative (Negative); Protein Urine Negative (Negative); RBC Urine 0-2 /hpf (0-2); Specific Grav Ur 1.016 (1.001-1.035); Squamous Epithelial Cell Urine Few /hpf (Few); Urobilinogen Urine 0.2 mg/dL (<2.0); WBC Urine 0-5 /hpf (0-3)
[2025-03-12 15:22] LABS: NT Pro B Type Natriuretic Pept 260 pg/mL (19.9-100); Troponin I < 0.012 ng/mL (0.000-0.034)
[2025-03-12 15:38] LABS: Influenza A QL RT-PCR Negative (Negative); Influenza B QL RT-PCR Negative (Negative); RSV RNA, RT-PCR Negative (Negative); SARS-CoV-2 RNA PCR Negative (Negative)
[2025-03-12 15:46] LABS: Lactic Acid Reflex 1.1 mmol/L (0.7-2.0)
[2025-03-12 17:38] LABS: Troponin I < 0.012 ng/mL (0.000-0.034)
[2025-03-12 18:00] VITALS: BP 120/80; PULSE 96; RESP 16; O2SAT 97
== END 2025-03-12 18:00 | disposition home or self-care (01) ==
PROVIDERS: Physician Assistant; Emergency Provider Emergency Medicine; PCP Emergency Medicine
DX: R07.89 Other chest pain (principal); M54.6 Pain in thoracic spine; Z20.822 Contact with and (suspected) exposure to COVID-19; I25.2 Old myocardial infarction; I51.9 Heart disease, unspecified; M19.90 Unspecified osteoarthritis, unspecified site; F17.210 Nicotine dependence, cigarettes, uncomplicated; Z90.710 Acquired absence of both cervix and uterus; Z95.5 Presence of coronary angioplasty implant and graft; J43.9 Emphysema, unspecified; R94.31 Abnormal electrocardiogram [ECG] [EKG]; M51.44 Schmorl's nodes, thoracic region; M48.04 Spinal stenosis, thoracic region; Z79.02 Long term (current) use of antithrombotics/antiplatelets
CPT/HCPCS: 36415; 71045; 71275; 80053; 81001; 83605; 83690; 83880; 84484; 85025; 85610; 85730; 87086; 87637; 93005; 99284; Q9967